=== PATIENT | male | born 1980 | race Caucasian/White ===

== ENCOUNTER → 2019-12-17 15:23 | Outpatient (CLI) | payer OTHER, SELFPAY ==
[2019-12-18 07:04] LABS: COVID19 Sendout Not Detected (Not Detect)
== END ==
PROVIDERS: Family Provider Family Medicine; PCP Family Medicine; Visit Provider Physician Assistant
DX: Z01.818 Encounter for other preprocedural examination (principal)
CPT/HCPCS: 87635

== ENCOUNTER → 2021-02-16 14:44 | Outpatient (CLI) | payer OTHER, SELFPAY ==
[2021-02-16 15:17] LABS: COVID19 -Nasal RAPID POSITIVE (Negative)
== END ==
PROVIDERS: Family Provider Family Medicine; PCP Family Medicine; Visit Provider Physician Assistant
DX: U07.1 COVID-19 (principal)
CPT/HCPCS: 87635

== ENCOUNTER → 2021-08-01 15:25 | Outpatient (CLI) | payer OTHER, SELFPAY ==
--- NOTE | 2021-08-01 15:57 | DI.RAD.S_ITS ---
PROCEDURE: XR CHEST 2V INDICATIONS: cough, raspy chest, hx of bronchitis TECHNIQUE: 2 views of the chest were acquired. COMPARISON: None. FINDINGS: Surgical changes and devices: None. Lungs and pleura: Lungs are clear. No pleural effusions or pneumothorax. Mediastinum: Mediastinal contours are normal. Heart size is normal. Bones and chest wall: No suspicious bony abnormalities. Soft tissues appear unremarkable. IMPRESSION: No acute process. Dictated by: Jeremy Hector M.D. on 08/01/2021 at 16:19 Approved by: Jeremy Hector M.D. on 08/01/2021 at 16:19
[2021-08-01 16:37] LABS: COVID19 -Nasal RAPID Negative (Negative)
== END ==
PROVIDERS: Family Provider Family Medicine; PCP Family Medicine; Referring Provider Physician Assistant; Visit Provider Physician Assistant
DX: Z20.822 Contact with and (suspected) exposure to COVID-19 (principal); J06.9 Acute upper respiratory infection, unspecified
CPT/HCPCS: 71046; 87635

== ENCOUNTER → 2023-07-03 18:25 | Outpatient (CLI) | payer OTHER, SELFPAY ==
[2023-07-03 20:12] LABS: Urine N gonorrhoeae NOT DETECTED
[2023-07-03 20:28] LABS: Urine Chlamydia NOT DETECTED
== END ==
PROVIDERS: Family Provider Family Medicine; Visit Provider Nurse Practitioner Family
DX: Z11.3 Encounter for screening for infections with a predominantly sexual mode of transmission (principal)
CPT/HCPCS: 87491; 87591

== ENCOUNTER → 2023-07-04 07:55 | Outpatient (CLI) | payer OTHER, SELFPAY ==
[2023-07-07 19:24] LABS: Hepatitis B Surface Antigen NEGATIVE s/c (NEGATIVE)
[2023-07-07 19:30] LABS: HIV 1 & 2 Ab/Ag 4th Gen Combo NEGATIVE (NEGATIVE); Hep C Virus Ab w/Reflex Quant NEGATIVE s/c (NEGATIVE)
[2023-07-08 02:36] LABS: RPR Screen Non Reactive (Non Reactive)
[2023-07-10 09:43] LABS: HSV1IGG > 62.20
[2023-07-10 09:49] LABS: HSV 2 IGG AB < 0.91
== END ==
PROVIDERS: Family Provider Family Medicine; Referring Provider Nurse Practitioner Family; Visit Provider Nurse Practitioner Family
DX: Z11.3 Encounter for screening for infections with a predominantly sexual mode of transmission (principal)
CPT/HCPCS: 36415; 86592; 86695; 86696; 86803; 87340; 87389